=== PATIENT | female | born 1935 | race Caucasian/White ===

== ENCOUNTER 2016-11-15 13:00 | Inpatient (IN) | payer OTHER ==
[~2016-11-15 13:00] MED LIST: CHLORHEXIDINE GLUC HIBICLENS 118 ML BTL TP ONE
[2016-11-22] MEDS ORDERED: CHLORHEXIDINE GLUC HIBICLENS 118 ML BTL TP ONE (06:00)
[2016-11-22] MEDS ORDERED: LIDOCAINE 1% 5 ML SDV ONE (13:01)
[2016-11-22] MEDS ORDERED: INSULIN REGULAR HUMAN 100 UNIT/ML ONE (13:37)
[2016-11-22] MEDS ORDERED: BUPIVACAINE 0.5% 30 ML SDV ONE (13:40)
[2016-11-22] MEDS ORDERED: BUPIVACAINE/EPI 0.25% 30 ML SDV ONE (13:40)
[2016-11-22] MEDS ORDERED: SKIN ADHESIVE (DERMABOND) 1 EACH TP ONE (13:41)
[2016-11-22] MEDS ORDERED: BACITRACIN 50,000 UNITS/10 ML SYR IRR ONE (13:42)
[2016-11-22] MEDS ORDERED: fentaNYL 100 MCG/2 ML INJ ONE (13:57)
[2016-11-22] MEDS ORDERED: PROPOFOL 200 MG/20 ML VIAL ONE ×2 (13:57)
[2016-11-22] MEDS ORDERED: LIDOCAINE 2% 100 MG/5 ML SYR IVP ONE (13:59)
[2016-11-22] MEDS ORDERED: ROCURONIUM 50 MG/5 ML VIAL ONE (14:00)
[2016-11-22] MEDS ORDERED: ceFAZolin 2 GM/DEXTROSE 100 ML IV ONE (14:30)
[2016-11-22] MEDS ORDERED: PHENYLEPHRINE 10 MG/ML SDV ONE (14:39)
[2016-11-22] MEDS ORDERED: ONDANSETRON 4 MG/2 ML VIAL ONE (15:10)
[2016-11-22] MEDS ORDERED: DEXAMETHASONE 4 MG/ML VIAL ONE (15:10)
[2016-11-22] MEDS ORDERED: LR 1,000 ML IV ONE (15:16)
[2016-11-22] MEDS ORDERED: LIDOCAINE 1% 5 ML SDV ID PRN (15:16)
[2016-11-22] MEDS ORDERED: HYDROmorphONE/DILAUDID 2 MG/ML SYR ONE (17:06)
--- NOTE | 2016-11-22 17:17 | POSTOPPROG ---
Post Op Note Date of Operation: 11/22/16 Surgeon: Daniel Vizcaino Anesthesiologist: Sherry Anesthesia: GET(General Endotracheal) Pre-op Diagnosis: Infected R humeral IMN, rotator cuff deficiency Post-op Diagnosis: Infected R humeral IMN, rotator cuff deficiency Indication: Infection Procedure: R humeral IMN, blade and interlock screw removal with I&D Findings: No gross purulence, however extensive biofilm present. Inf/Abcess present in the surg proc area at time of surgery?: Yes Depth: Organ Space (Bone) EBL: 100-500 (200cc) Complications: None Drains: Other (None) Specimen(s): Multiple cultures sent including tissue, swab and fluid.
[2016-11-22] MEDS ORDERED: SIMETHICONE 80 MG TAB CHEW PO PRN (17:20)
[2016-11-22] MEDS ORDERED: DIAZEPAM 5 MG TAB PO PRN (17:20)
[2016-11-22] MEDS ORDERED: TEMAZEPAM 15 MG CAP PO PRN (17:20)
[2016-11-22] MEDS ORDERED: OXYCODONE/APAP 5/325 TAB PO PRN (17:20)
[2016-11-22] MEDS ORDERED: diphenhydrAMINE 25 MG CAP PO PRN (17:20)
[2016-11-22] MEDS ORDERED: ACETAMINOPHEN 325 MG TAB PO PRN (17:20)
[2016-11-22] MEDS ORDERED: HYDROmorphONE/DILAUDID 1 MG/ML SYR IVP PRN (17:20)
[2016-11-22] MEDS ORDERED: ONDANSETRON 4 MG/2 ML VIAL IVP PRN (17:20)
[2016-11-22] MEDS ORDERED: FAMOTIDINE 20 MG TAB PO PRN (17:20)
[2016-11-22] MEDS ORDERED: PROMETHAZINE HCL 25 MG TAB PO PRN (17:20)
[2016-11-22] MEDS ORDERED: ONDANSETRON DISINTEGRATING 4 MG TAB PO PRN (17:20)
[2016-11-22] MEDS ORDERED: D5W 1/2 NS W/ 20 KCl/L 1,000 ML IV SCH (17:30)
[2016-11-22] MEDS ORDERED: INSULIN LISPRO 100 UNIT/ML SC SCH (18:00)
--- NOTE | 2016-11-22 18:38 | DX ---
Left Humerus, Two Views Clinical Indications: Postoperative follow up removal of orthopedic hardware; no previous studies ar e available for comparison. Findings: There is a healed humeral fracture. Previously positioned intramedullary carlo has been rem prashanth. There are two screw holes seen in the distal humeral diaphysis. No acute fracture is seen. S tigmata of previous proximal humeral screw is noted. Hypertrophic bony changes are noted. Impression: Negative for complication following removal of intramedullary carlo for treatment of left humeral fracture.
[2016-11-22] MEDS ORDERED: D50W 25 GM/50 ML SYR IVP PRN ×2 (18:47→22:51)
[2016-11-22] MEDS ORDERED: PARAMETERS MISC PRN (18:47)
--- NOTE | 2016-11-22 18:57 | GOP ---
[f rep st] OPERATIVE REPORT DATE OF OPERATION: 11/22/2016 SURGEON: Daniel Vizcaino MD CELLOPHANE BAG MACHINE OPERATOR: Tran Bishop PA-C ANESTHESIA: General. ANESTHESIOLOGIST: Lauro Powell MD PREOPERATIVE DIAGNOSIS: Infected right humeral intramedullary nail fracture prosthesis; possible chronic osteomyelitis; right shoulder rotator cuff deficiency. POSTOPERATIVE DIAGNOSIS: Infected right humeral intramedullary nail fracture prosthesis; possible chronic osteomyelitis; right shoulder rotator cuff deficiency. PROCEDURE PERFORMED: 1. Right shoulder incision, irrigation, drainage, and debridement. 2. Right elbow incision, irrigation, drainage, and debridement. 3. Removal of right humeral IM nail fracture prosthesis requiring shoulder and elbow incisions. FINDINGS: Humeral hardware was intact throughout. There was no gross purulence at any of the surgical sites. There was extensive biofilm within the intramedullary canal, surrounding the nail, and within the central cannulated portion of the humeral nail. There was a very large superior humeral bony defect after HWR, measuring 1.5-2cm A-P and 4cm S-I, i.e., in the area of the proximal screw and washers and spiral blade. In addition, the nail was initially found with 7-8mm of prominence superiorly, impinging on the undersurface of the acromion and area of normal rotator cuff tendon. There was a very large rotator cuff tear and severe rotator cuff deficiency throughout all of the SSp and majority of IS insertions. Otherwise, the fracture appeared to be healed throughout. SPECIMENS: Multiple soft tissue, swab and fluid samples were sent for culture and sensitivity prior to prophylactic antibiotics. Again, prophylactic antibiotics were provided after cultures were sent. ESTIMATED BLOOD LOSS: 200 cc. INDICATIONS: This is an 81-year-old female, who presented to me many months back with complaints of right shoulder pain, weakness and disability, and notable history of R humerus fx and IMN in October 2011. On initial presentation, her exam was consistent with significant cuff tear arthropathy but no sign of infection. She was managed nonoperatively with modalities and PT. Over the next 6 months or so, she began developing areas of redness, swelling, and pain, particularly around the lateral distal humerus concerning for possible infectious etiology, given exam, lab and imaging findings. I referred her for ID consultation with Dr. Gerard Barnett, who agreed with the overall workup, including imaging studies and lab markers, that there was a considerable concern for infected right humeral IM fracture prosthesis. As a result, the patient eventually elected to proceed with right shoulder and elbow surgery as listed above. The risks, benefits, and alternatives were described to the patient. All of her questions were answered prior to surgery. Please see history and physical for additional information. DESCRIPTION OF PROCEDURE: The patient was identified in the preoperative holding area and her right shoulder and elbow were signed as the operative site. The patient was confirmed in bilateral lower extremity NICOL hose and SCDs , and 2 g of IV prophylactic cefazolin were held and ready for provision in the operating room after cultures were obtained. The patient was taken back to the operating room, placed on the OR table, and general anesthesia was obtained. Once the area was stabilized, she was placed into the beach chair position. Great care was taken to pad behind both knees and around both proximal fibulas as well as foam egg-crate padding around both heels and ankles. Head and neck were carefully positioned with the standard well-padded head and neck positioning device in neutral position. Goggles were placed. The left upper extremity was placed across the lap with abundant padding around the elbow and ulnar nerve as well as around the hand and wrist. The right upper extremity was then prepped and draped in the usual sterile manner. Incision lines from prior surgery were utilized for this surgery. Each of these incisions was infiltrated with 10 cc of 0.25% Marcaine with epinephrine. A #10 blade was used to make an incision over the deltoid measuring approximately 8 cm and an additional incision distally over the anteromedial distal biceps region over a length of approximately 4 cm. Again, these were both the scars from her prior surgery. Once these incisions were made through the level of the skin, careful dissection was taken down through the subcutaneous fat. Proximally, the deltoid was split at the level of the scar plane and with 2 different windows utilized through the deltoid, both more laterally and more anteriorly, the hardware was accessed. With debridement of the significant subdeltoid bursa, the lateral humerus and greater tuberosity were identified. The nail was relatively proud superiorly and, therefore, it was easily identifiable on the anterosuperior humerus. Once all debridement was completed and tissues were removed, multiple samples were sent for culture. The end cap was removed using a standard StarDrive from the [employer] set. Next , the blade portion of the nail was identified and debrided of soft tissues as well as all sutures were removed. Again, soft tissues and some suture were sent for culture. The standard T-handle for the blade was then assembled onto the blade and the blade was removed from the proximal humerus. Next, more inferiorly and anteriorly, an additional screw was found with 2 washers. This was apparently through the nail from preop x-rays as well as direct visualization. The axillary nerve was directly over this screw and, therefore, very carefully dissection and retraction were utilized in order to protect the axillary nerve. This screw was then removed with its 2 washers in its entirety. Once the proximal hardware was removed, the distal hardware was addressed. Right anterior dermal incision was made thru prior scar, and with careful dissection down through the abundant subcutaneous fat, retractors were placed. With blunt dissection using the surgeon's finger as well as Metzenbaum scissors , spreading was utilized in order to access the anterior humerus through scarred muscle tissues. A baby Huff was placed directly on bone just medial to both the proximal and distal interlock screws and [facility] lateral. In each case, the humerus was rotated in order to deliver the screw into the field and then the screw was removed with the standard StarDrive screwdriver. In both cases, the entire screw was removed without any damage. Finally, using the standard threaded extraction device, the nail was malleted in a retrograde manner up out through the superior and anterior portal. Please note that the blade was removed through the more posterolateral window at the deltoid and the anterolateral window as utilized for the screw-in nail. Biofilm tissue from the nail was carefully removed from the internal portion of the nail and sent for C&S. Once all hardware was removed from the humerus both proximally and distally, both wounds were copiously irrigated with sterile saline using standard bulb syringe lavage as well as pulsatile lavage. The intramedullary canal of the humerus was then debrided with a long curved curette as well as a small backhoe device. Membrane from within the humeral canal was sent for additional cultures. Swabs were utilized in order to swab the intramedullary canal and the distal interlock screw holes and these were sent for culture. The distal humerus was accessed via the anterior incision, and irrigated and debrided of any membranous or necrotic tissues concerning for possible infection. There was no obvious gross cortical osteomyelitis or pus. Both distal humeral screw holes were treated with curettage and cultures were sent. Once all cultures were sent, the 2 g of IV cefazolin was provided by the anesthesia service. Once this work was completed, the intramedullary canal was further pulsatile lavaged with an intramedullary lavage tip. All irrigation was then removed with the standard ortho suction tip. The shoulder was inspected throughout and found to be of appropriate hemostasis. Given that the rotator cuff was significantly deficient and there was a very large bone void proximally, no rotator cuff repair was performed or possible. The wounds were then closed in layers. Proximally, the deltoid splits, i.e., the anterior and posterior windows, were closed with multiple interrupted 0 Vicryl sutures. The deep fat and dermal space was closed with 2-0 Vicryl sutures. The deep dermal layer was closed with 3-0 Monocryl sutures. The skin was closed with monica. Distally at the humerus, the fat layer was closed with multiple interrupted 2-0 Vicryl sutures. The deep dermal layer was closed with 3-0 Monocryl sutures and then the skin was closed with monica. Sterile postoperative cervical dressings were applied. The right upper extremity was placed in a sling immobilizer. The patient was then returned to the supine position and the anesthesia service took over to wake the patient up. TOURNIQUET TIME: None. DRAINS: None. IMPLANTS: None. COMPLICATIONS: None. DISPOSITION: The patient was extubated and transferred to the PACU in stable condition. She will be admitted for medical management due to brittle diabetes and pain control. She will be seen by ID consult and medical comanagement. /[id number]/MODL MTDD
--- NOTE | 2016-11-22 19:19 | DX ---
Fluoroscopy Provided for Intraoperative Localization Indication: Removal of right humeral hardware. Technique: 5 seconds of fluoroscopy time. Cumulative dose: 0.24 mGy. Findings: Three intraoperative spot films reveal localization of the the upper and lower interlockin g screws. Impression: Fluoroscopy provided for intraoperative localization.
[2016-11-22 19:34] VITALS: RESP 16
[2016-11-22] MEDS: OXYBUTYNIN CHLORIDE 5 MG TAB PO SCH (19:47)
[2016-11-22] MEDS: CYANO/VITAMIN B12 1000 MCG TAB PO SCH (19:48)
[2016-11-22] MEDS: ASPIRIN EC 325 MG TAB PO SCH (19:48)
[2016-11-22] MEDS: GABAPENTIN 300 MG CAP PO SCH (19:48)
[2016-11-22] MEDS: HYDROCODONE/APAP 5/325 TAB PO PRN (19:54)
[2016-11-22] MEDS ORDERED: INSULIN GLARGINE 100 UNITS/ML SYRINGE SC SCH (21:00)
[2016-11-22 22:26] LABS: GLUCOSE 392 mg/dL (70-100)
[2016-11-22] MEDS ORDERED: 1/2 NS 1,000 ML IV SCH (23:00)
[2016-11-22] MEDS: ceFAZolin 2 GM/DEXTROSE 100 ML IV SCH (23:15)
--- NOTE | 2016-11-23 01:17 | GCON ---
[f rep st] CONSULTATION INTERNAL MEDICINE CONSULTATION DATE OF CONSULTATION: 11/22/2016 REFERRING PHYSICIAN: Daniel Vizcaino MD REASON FOR CONSULTATION: Medical opinion regarding hyperglycemia in a known diabetic. HISTORY: This patient is an 81-year-old female who has been having right shoulder pain for months. Initially she was diagnosed with a rotator cuff tear. Eventually she had increasing infectious sympt oms and saw Dr. Gerard Barnett as an outpatient and was thought to have an infected right humeral prosthes is. She had previously had an IM nail into that shoulder. She had increased redness, swelling, and pain. She now presents to the hospital for elective surgery with Dr. Vizcaino on the right shoulder. Earlier today, she underwent incision and drainage and debridement. No purulence was found, but th ere was extensive biofilm present and bone breakdown. This is suspicious for possible osteomyelitis. The nail was removed. The patient is seen postoperatively in her room when she is having very high glucose, with her last r eading being 392. Her only complaint at this time is feeling a little dizzy. She otherwise feels we ll. PAST MEDICAL HISTORY: 1. Diabetes type 2. 2. Hypothyroidism. 3. E coli sepsis requiring ICU stay at [facility] last July. She had a [facility]TI [facility], although she is not clear whether or not that was her source of infection. PAST SURGICAL HISTORY: Bilateral total knee arthroplasties, appendectomy, cholecystectomy, tonsillec jovany. MEDICATIONS: Please see computer record for full detailed list. ALLERGIES: Penicillin, and sulfa. SOCIAL HISTORY: Quit smoking in 1985. No alcohol. She lives alone in [facility]. PRIMARY CARE PHYSICIAN: Dr. Palmira Matthew. REVIEW OF SYSTEMS: Complete Review of Systems is obtained. Review of Systems is negative on constit utional, HEENT, GI, pulmonary, cardiovascular, , hematology, skin, musculoskeletal, endocrine, psyc h, except for positives and negatives as are in HPI. FAMILY HISTORY: Reviewed, noncontributory to presenting complaint. PHYSICAL EXAMINATION: GENERAL: Well-developed, well-nourished female, in no acute distress. VITAL SIGNS: Temperature is 37.0, pulse of 70, blood pressure 121/76, satting 94% on 3 L. EYES: Normal c onjunctivae, pupils equal and react to light. ENT: Normal ears and nose. Hearing intact. Normal t eeth. Oropharynx moist. NECK: Trachea midline. No thyromegaly. CHEST: Normal effort. LUNGS: C lear to auscultation bilaterally. CARDIOVASCULAR: Regular rate and rhythm. No murmur. No lower ex tremity edema. ABDOMEN: Soft, nontender. No hepatosplenomegaly. SKIN: Warm, dry, intact. No jose h. MUSCULOSKELETAL: No cyanosis or clubbing. Strength 5/5 upper and lower extremities. NEUROLOGIC : Cranial nerves intact. Normal sensation to light touch. PSYCHIATRIC: Alert and oriented x3. No rmal mood and affect. Normal judgment. Normal memory. LABORATORY VALUES: Only lab at this time is a glucose of 392. ASSESSMENT/PLAN: 1. Diabetes type 2, uncontrolled. Will remove the D5 from her IV fluid and instead place her on neha f-normal saline without dextrose. Will start insulin sliding scale with regular insulin and give her evening Lantus dose at 30 mg at her home dose. Blood glucose will continue to be monitored closely. Will check a hemoglobin A1c to assess baseline control. 2. Infected shoulder prosthesis, possible osteomyelitis, status post incision and drainage and debri natalio, and IM nail removal. Cultures have been sent and are pending. She is currently on IV Ancef. Infectious Disease will consult in the morning. 3. Obesity. BMI of 33. 4. Will watch respiratory status closely in the postoperative period, especially as she is requiring narcotics. 5. Deep venous thrombosis prophylaxis. She is high risk. Will prescribe subcu Lovenox to start in the morning. CORE STATUS: She does request DNR now that she is through the operative period. Internal Medicine will continue to follow along as this patient remains hospitalized. Thank you very much for this consultation. /[id number]/MODL
[2016-11-23] MEDS: LEVOTHYROXINE 112 MCG TAB PO SCH (05:06)
[2016-11-23 06:36] LABS: % IMMATURE GRANULYOCYTES 0.4 % (0.0-1.1); ABSOLUTE IMMATURE GRANULOCYTES 0.04 10^3/uL (0.00-0.10); ADD DIFF? NO; ADD MORPH? NO; ADD SCAN? NO; ATYPICAL LYMPHOCYTE FLAG 0 (0-99); FRAGMENT RBC FLAG 0 (0-99); HEMATOCRIT 38.8 % (38.0-47.0); HEMOGLOBIN 12.5 g/dL (12.6-16.3); LEFT SHIFT FLG 0 (0-99); LIPEMIA HEMOLYSIS FLAG 80 (0-99); MEAN CELL HEMOGLOBIN 28.5 pg (27.9-34.1); MEAN CELL HEMOGLOBIN CONCENTR. 32.2 g/dL (32.4-36.7); MEAN CELL VOLUME 88.4 fL (81.5-99.8); MEAN PLATELET VOLUME 9.7 fL (8.7-11.7); PLATELET CLUMPS FLAG 0 (0-99); PLATELET COUNT 244 10^3/uL (150-400); RED BLOOD CELL COUNT 4.39 10^6/uL (4.18-5.33); RED CELL DISTRIBUTION WIDTH 14.6 % (11.5-15.2)
[2016-11-23 06:43] LABS: ANION GAP 12 mEq/L (8-16); CALCIUM 8.4 mg/dL (8.5-10.4); CARBON DIOXIDE 26 mEq/l (22-31); CHLORIDE 99 mEq/L (97-110); CREATININE 1.4 mg/dL (0.6-1.0); GLOMERULAR FILTRATION RATE 36; GLUCOSE 470 mg/dL (70-100); POTASSIUM 5.2 mEq/L (3.5-5.2); SODIUM 137 mEq/L (134-144)
[2016-11-23] MEDS: ceFAZolin 2 GM/DEXTROSE 100 ML IV SCH (07:14)
[2016-11-23] MEDS ORDERED: INSULIN REGULAR HUMAN 100 UNIT/ML SC SCH (07:30)
[2016-11-23] MEDS ORDERED: ENOXAPARIN 40 MG/0.4 ML SYR SC SCH (09:00)
--- NOTE | 2016-11-23 09:08 | SOAPPROG ---
SOAP Progress Note Assessment/Plan: Assessment/Plan: 81y/o F s/p irrigation, debridement and drainage of the right shoulder and elbow; removal of R humeral nail for an infected R humeral IM nail and possible osteomyelitis POD#1 - Continue pain management - Continue PT/OT - Continue SCDs/TEDs - Continue Lovenox for VTE prophylaxis - Patient is okay for discharge from an orthopedic standpoint, but will wait for hospitalist clearance - Patient will need close follow-up with PCP after discharge 11/23/16 09:11 Subjective: 81y/o F s/p irrigation, debridement and drainage of the right shoulder and elbow ; removal of R humeral nail for an infected R humeral IM nail and possible osteomyelitis. Pt states she is feeling well this morning, and pain is well- controlled on [place]. Current pain 02/18. Pt has been up and out of bed without difficulty. Pt denies fever, chills, chest pain, SOB, nausea, vomiting, calf pain, numbness and tingling. Objective: VSS, afebrile, glucose 470 Vital Signs Temp Pulse Resp BP Pulse Ox 36.9 C 62 16 114/80 95 11/23/16 07:50 11/23/16 07:50 11/23/16 07:50 11/23/16 07:50 11/23/16 07:50 Microbiology 11/22/16 16:00 Gram Stain - Final Arm - Tissue 11/22/16 16:00 Gram Stain - Final Arm - Tissue 11/22/16 16:00 Gram Stain - Final Arm - Tissue 11/22/16 16:00 Gram Stain - Final Arm - Eswab 11/22/16 16:00 Gram Stain - Final Arm - Eswab 11/22/16 16:00 Gram Stain - Final Arm - Tissue Laboratory Results 11/23/16 04:28 11/23/16 04:28 11/22/16 11/23/16 11/24/16 05:59 05:59 05:59 Intake Total 1600 600 Output Total 250 550 Balance 1350 50 Physical Exam - Physical Exam General Appearance: alert, no apparent distress Skin: normal color, warm/dry, other (Dressing and sling in place RUE) Extremities: normal capillary refill, No pedal edema, No calf tenderness, No swelling, No Ronaldo's sign Neuro/Psych: no motor/sensory deficits, alert, normal mood/affect ICD10 Worksheet Patient Problems: Problems Problem Status Diagnosed infected hardware right upper extremity Acute
[2016-11-23] MEDS: HYDROCODONE/APAP 5/325 TAB PO PRN ×2 (09:10→17:23)
[2016-11-23] MEDS: OXYBUTYNIN CHLORIDE 5 MG TAB PO SCH ×2 (09:10→20:46)
[2016-11-23] MEDS: ASPIRIN EC 325 MG TAB PO SCH ×2 (09:10→20:46)
[2016-11-23] MEDS ORDERED: ALTEPLASE 2 MG VIAL IVP PRN (09:44)
[2016-11-23] MEDS ORDERED: VANCOMYCIN 750 MG in D5W 150 ML IV SCH (10:00)
[2016-11-23] MEDS ORDERED: INSULIN GLARGINE 100 UNITS/ML SYRINGE SC SCH (10:13)
--- NOTE | 2016-11-23 10:15 | PDIAF ---
- Diagnosis Diagnosis: R Shoulder Infection, possible OM Code Status: Do Not Resuscitate - Medication Management Discharge Medications: Medications to Continue on Transfer Cyanocobalamin [Vitamin B12 (*)] 1,000 mcg PO HS 11/08/16 [Last Taken 11/21/16 23:00] Gabapentin [Neurontin 300 MG (*)] 600 mg PO HS 11/08/16 [Last Taken 11/21/16 23: 00] Insulin Glargine [Lantus 100 UNITS/ML (*)] 30 units SC HS 11/08/16 [Last Taken 11/21/16 23:00] Insulin Lispro [humALOG LISPRO 100 units/ml (*)] 10 - 12 unit SC TIDMEAL [Last Taken 11/21/16 23:00] Levothyroxine [Synthroid 112 mcg (*)] 112 mcg PO DAILY06 11/08/16 [Last Taken 08:15] Oxybutynin Chloride 5 mg PO BID 11/08/16 [Last Taken 11/22/16 08:15] Hydrocodone/APAP 5/325 [[place] 5/325 (*)] 1 - 2 tab PO Q4HRS PRN #30 tab [Last Taken Unknown] Retirement Antibiotics: vancomycin 750mg IV daily Rooming House Keeper Antibiotic Stop Date: 01/04/17 Discharge Medications: Refer to the Discharge Home Medication list for PRN reason. PICC Care - Routine: Yes - Orders Services needed: Home Care, Registered Nurse Home Care Face to Face: I certify that this patient was under my care and that I had the required [id number] encounter meeting the encounter requirements on the discharge day. My findings support the fact that the patient is homebound as defined in CMS Chapter 7 Medicare Benefits Manual 30.1.1, The condition of the patient is such that there exists a normal inability to leave home and consequently, leaving home would require a considerable and taxing effort. [place]: No - Labs/Radiology BMP Date: 11/29/16 (weekly ) CBC Date: 11/26/16 (Weekly Saturday) CMP Date: 11/26/16 (Weekly Saturday) CRP Date: 11/26/16 (Weekly Saturday) [place] Date and Time: 11/26 and 11/29 and every following Saturday and Call or Fax Lab and Imaging Results to: [id number] - Follow Up Care Current Providers and Referrals: Daniel Vizcaino MD [Medical Doctor] - (Pt will follow up 10-14 days postoperatively, or sooner with any additional concerns or complaints. This appointment has been previously scheduled.) Palmira Frost MD [Primary Care Provider] - Gerard Barnett MD [Medical Doctor] - 12/03/16
[2016-11-23 10:32] LABS: GLUCOSE 504 mg/dL (70-100)
[2016-11-23 11:02] LABS: HEMOGLOBIN A1C 8.4 % (4.0-6.0)
--- NOTE | 2016-11-23 11:15 | HOSPPROG ---
Hospitalist Progress Note Assessment/Plan: Patient is an 81-year-old female who is been having right shoulder pain for months. She was initially diagnosed with a rotator cuff tear. She had increasing infectious symptoms and saw Dr. Barnett in the outpatient setting. She had elective surgery Dr. Vizcaino on the right shoulder. She is status post I and D and debridement. Today is my 1st encounter with the patient. Chart reviewed. Discussed her care with both ID and orthopedics physicians. #. Diabetes type 2/uncontrolled * spoke with nursing staff and and glucoses remain uncontrolled today * will place on ADA diet * suspect that her infection is affecting her elevated glucoses * changed sliding scale to high/ and increased lantus dosing * hgb A1c was elevated @ 8.4 #. infected shoulder prosthesis * status post I and D * Infectious Disease team involved with her care #, obesity with a BMI of 33 #. renal insufficiency with a creatinine of 1.4 #. DVT prophylaxis: will change to heparin with elevated creat Subjective: Ellie says her shoulder pain is well managed/ asymptomtic of high sugars. Objective: Vital Signs Temp Pulse Resp BP Pulse Ox 36.9 C 62 16 114/80 95 11/23/16 07:50 11/23/16 07:50 11/23/16 07:50 11/23/16 07:50 11/23/16 07:50 Microbiology 11/22/16 16:00 Gram Stain - Final Arm - Tissue 11/22/16 16:00 Gram Stain - Final Arm - Tissue 11/22/16 16:00 Gram Stain - Final Arm - Tissue 11/22/16 16:00 Gram Stain - Final Arm - Eswab 11/22/16 16:00 Gram Stain - Final Arm - Eswab 11/22/16 16:00 Gram Stain - Final Arm - Tissue Laboratory Results 11/23/16 04:28 11/23/16 09:35 11/22/16 11/23/16 11/24/16 05:59 05:59 05:59 Intake Total 1600 600 Output Total 250 550 Balance 1350 50 - Physical Exam Constitutional: not in pain, chronically ill appearing Eyes: PERRL Ears, Nose, Mouth, Throat: hearing normal Cardiovascular: regular rate and rhythym Respiratory: no respiratory distress Gastrointestinal: normoactive bowel sounds Skin: warm Neurologic: AAOx3 Psychiatric: interacting appropriately, not anxious, not encephalopathic ICD10 Worksheet Patient Problems: Problems Problem Status Diagnosed infected hardware right upper extremity Acute
[2016-11-23] MEDS ORDERED: INSULIN REGULAR HUMAN 100 UNIT/ML SC ONE (11:30)
--- NOTE | 2016-11-23 11:38 | GCON ---
[f rep st] CONSULTATION INFECTIOUS DISEASE CONSULTATION DATE OF CONSULTATION: 11/23/2016 REFERRING PHYSICIAN: Daniel Vizcaino MD REASON FOR CONSULTATION: Right shoulder infection. HISTORY OF PRESENT ILLNESS: An 81-year-old woman with type 2 diabetes whose problems related to her right shoulder date back to 2010 when she sustained a right humerus fracture requiring ORIF on 11/08/2011. Patient subsequently developed recurrent bouts of right upper extremity cellulitis starting approximately in March of 2016 and was subsequently evaluated by my partner, Dr. Barnett, on September 13, 2016 for potential underlying involvement of the hardware and indolent infection. Patient underwent imaging at outside facilities, including a bone scan and tagged WBC, which had increased activity at the right proximal and distal humerus, and patient had labs that suggested of chronic mild inflammation. Further, patient underwent a joint aspiration in June of 2016 that was reportedly negative. The patient was placed on suppressive doxycycline and was relatively stable, but it was decided to undergo definitive therapy with hardware removal to cure the infection. The patient had this procedure done on November 22, 2016. She stopped doxycycline 2 weeks prior. Postoperatively, she is feeling well without specific complaints and desires to go home as soon as possible. Intraoperatively, it was noted no purulence, but significant biofilm. All Gram stains were negative for organisms. Multiple cultures are currently pending today. PAST MEDICAL HISTORY: Type 2 diabetes, hypothyroidism, and recent urosepsis last summer. PAST SURGICAL HISTORY: Appendectomy, cholecystectomy, fractured humerus with repair 11/08/2011, and bilateral knee replacement. FAMILY HISTORY: Positive for coronary artery disease and type 2 diabetes. SOCIAL HISTORY: The patient is a former tobacco user. No alcohol. She lives in [place] and her granddaughter provides her some help. ALLERGIES: The patient has an allergy to penicillin which causes hives and diffuse erythema, and sulfa which causes nausea. She also has codeine and morphine listed as allergies. MEDICATIONS: The patient is chronically on Humalog, Lantus, and levothyroxine, is on pain, nausea and laxatives while hospitalized. REVIEW OF SYSTEMS: A complete 10-point review of systems was performed and is negative, except as mentioned in the HPI. PHYSICAL EXAM: VITAL SIGNS: Blood pressure 114/80, heart rate 62, respiratory rate 16, saturation 95% on 2 L, temperature 36.9. She has been afebrile throughout the hospital course. GENERAL: This is a pleasant, well-appearing woman who appears younger than her stated age. In no acute distress. HEENT: Moist mucous membranes. No oral lesions. NECK: Supple. No lymphadenopathy. CARDIOVASCULAR: Regular rate and rhythm. No murmurs. CHEST: Clear to auscultation bilaterally. ABDOMEN: Obese, soft, nontender. Bowel sounds are present. EXTREMITIES: No lower extremities edema. No joint swelling. Right shoulder surgical dressings were still in place. The patient's arm was in a sling. NEUROLOGICAL: She was alert and oriented x4, moving all 4 extremities. LABORATORY: White count 10.6, hematocrit 38, platelets of 244. Creatinine was 1.4, glucoses were over 350 since hospitalization. Microbiology: Six separate cultures are in the Microbiology Lab and pending. Gram stains were negative, as above. ASSESSMENT AND PLAN: This is an 81-year-old woman with recurrent skin infection of her right shoulder that reflected underlying infection of her shoulder with hardware in place, some underlying concern for osteomyelitis. Patient is now status post hardware removal and debridement and we will plan oral doxycycline and follow cultures. Most likely etiologic agents include: Propionibacterium acnes, Staphylococcus and Streptococcus. Noted patient's significant allergy to penicillin. Of note, patient did have bacteremia with Escherichia coli last year and this is a possible pathogen, but is so low on the list will not cover empirically, and we will continue to follow cultures. The patient is instructed to follow up with Dr. Barnett in our office and we will try to plan for simultaneous followup on December 04 when she returns to see Dr. Vizcaino. /[id number]/MODL MTDD
[2016-11-23] MEDS: INSULIN REGULAR, HUMAN 100 UNIT/1 ML VIAL HIGH SC SCH ×3 (12:33→21:19)
--- NOTE | 2016-11-23 12:58 | SOAPPROG ---
SOAP Progress Note Assessment/Plan: Assessment: POD 1 s/p R shoulder/elbow extensive I&D, humeral IMN/fx prosthesis removal with complete HWR. Doing well from ortho standpoint, no sign of active/aggressive infection, primary concern at this point is uncontrolled DMII and BG's. Plan: NWB RUE in immobilizer; OK for RUE hand/wrist/elbow A/AA/PROM, shoulder pendulums only. OOB ad john, activity as tolerated. Complete proph IV cefazolin. Per my discussion with Dr Barnett pre-op and today, ID will re-Rx doxy PO and tailor abx pending micro results. Therefore, PICC and IV abx cancelled. Will follow micro and have requested cx continued for 14 days to allow for possible p. acnes growth. D/c home once medicine has been able to regain control of her elevated BG's and she is medically fit. F/u with both Dr Barnett and me 10-14 days post-op. Initial plan was TEDs/SCDs + PO ECASA for VTE prophylaxis, however, Dr Chua from medicine preferred/Rx'd Enox o/n, therefore will continue for 14 days post-op and prophylactically. I appreciate Hosp and ID svce assistance on her care. Please call with any questions. 11/23/16 12:51 Subjective: Denies any pain, numbness, tingling. No fevers/chills, overall feels well. Objective: Vital Signs Temp Pulse Resp BP Pulse Ox 37.0 C 63 16 130/56 H 95 11/23/16 11:42 11/23/16 11:42 11/23/16 11:42 11/23/16 11:42 11/23/16 11:42 Microbiology 11/22/16 16:00 Gram Stain - Final Arm - Tissue 11/22/16 16:00 Gram Stain - Final Arm - Tissue 11/22/16 16:00 Gram Stain - Final Arm - Tissue 11/22/16 16:00 Gram Stain - Final Arm - Eswab 11/22/16 16:00 Gram Stain - Final Arm - Eswab 11/22/16 16:00 Gram Stain - Final Arm - Tissue Laboratory Results 11/23/16 04:28 11/23/16 09:35 11/22/16 11/23/16 11/24/16 05:59 05:59 05:59 Intake Total 1600 600 Output Total 250 550 Balance 1350 50 AFeb, VSS. RUE in immob, dsgs c/d/i. Delt motor function intact and LT sens grossly intact. DNVI BUE's. MICRO: NGTD, +PMNs/+WBCs, no org's. Repeat BG's >350 after 504 this AM. ICD10 Worksheet Patient Problems: Problems Problem Status Diagnosed infected hardware right upper extremity Acute
[2016-11-23 13:52] LABS: ALBUMIN 3.1 g/dL (3.5-5.0); BILIRUBIN,TOTAL 0.4 mg/dL (0.1-1.4); BILIRUBIN-CONJUGATED 0.4 mg/dL (0.0-0.5); C-REACTIVE PROTEIN 68.1 mg/L (<10.0); TOTAL PROTEIN 5.8 g/dL (6.3-8.2)
[2016-11-23] MEDS ORDERED: ceFAZolin 2 GM/DEXTROSE 100 ML IV SCH (16:00)
[2016-11-23] MEDS: HEPARIN 5,000 UNIT/0.5 ML SYR SC SCH (20:44)
[2016-11-23] MEDS: CYANO/VITAMIN B12 1000 MCG TAB PO SCH (20:46)
[2016-11-23] MEDS: GABAPENTIN 300 MG CAP PO SCH (20:46)
[2016-11-24 05:26] LABS: HEMATOCRIT 36.5 % (38.0-47.0); HEMOGLOBIN 11.9 g/dL (12.6-16.3)
[2016-11-24 05:33] LABS: ANION GAP 9 mEq/L (8-16); CARBON DIOXIDE 28 mEq/l (22-31); CHLORIDE 105 mEq/L (97-110); CREATININE 1.3 mg/dL (0.6-1.0); GLOMERULAR FILTRATION RATE 39; GLUCOSE 119 mg/dL (70-100); POTASSIUM 4.3 mEq/L (3.5-5.2); SODIUM 142 mEq/L (134-144)
[2016-11-24] MEDS: LEVOTHYROXINE 112 MCG TAB PO SCH (06:07)
[2016-11-24] MEDS: HEPARIN 5,000 UNIT/0.5 ML SYR SC SCH (06:08)
[2016-11-24] MEDS: HYDROCODONE/APAP 5/325 TAB PO PRN ×2 (06:19→13:53)
[2016-11-24 07:19] VITALS: O2SAT 96
[2016-11-24] MEDS ORDERED: INSULIN GLARGINE 100 UNITS/ML SYRINGE SC SCH (08:39)
--- NOTE | 2016-11-24 08:39 | HOSPPROG ---
Hospitalist Progress Note Assessment/Plan: Patient is an 81-year-old female who is been having right shoulder pain for months. She was initially diagnosed with a rotator cuff tear. She had increasing infectious symptoms and saw Dr. Barnett in the outpatient setting. She had elective surgery Dr. Vizcaino on the right shoulder. She is status post I and D and debridement. #. Diabetes type 2/uncontrolled * much improved today * had been on high dose sliding scale will change her to the middle * I increased her Lantus dose/ will resume her baseline dose * placed on ADA diet * hgb A1c was elevated @ 8.4 #. infected shoulder prosthesis * status post I and D * Infectious Disease team involved with her care #, obesity with a BMI of 33 #. renal insufficiency with a creatinine of 1.3 #. DVT prophylaxis: placed on lower dose of Lovenox 30 daily sq okay to DC home today per Orthopedics Subjective: Ellie has no complaints. Objective: Vital Signs Temp Pulse Resp BP Pulse Ox 36.7 C 53 L 16 133/85 H 96 11/24/16 07:17 11/24/16 07:17 11/24/16 07:17 11/24/16 07:17 11/24/16 07:17 Microbiology 11/22/16 16:00 Gram Stain - Final Arm - Tissue 11/22/16 16:00 Gram Stain - Final Arm - Tissue 11/22/16 16:00 Gram Stain - Final Arm - Eswab 11/22/16 16:00 Gram Stain - Final Arm - Eswab 11/22/16 16:00 Gram Stain - Final Arm - Tissue 11/22/16 16:00 Gram Stain - Final Arm - Tissue Laboratory Results 11/24/16 04:21 11/24/16 04:21 11/23/16 11/24/16 11/25/16 05:59 05:59 05:59 Intake Total 1600 1975 Output Total 250 1800 Balance 1350 175 - Physical Exam Constitutional: no apparent distress, appears nourished Eyes: PERRL Ears, Nose, Mouth, Throat: hearing normal Cardiovascular: regular rate and rhythym Respiratory: no respiratory distress Gastrointestinal: normoactive bowel sounds Skin: warm Musculoskeletal: no muscle tenderness Neurologic: AAOx3 Psychiatric: interacting appropriately ICD10 Worksheet Patient Problems: Problems Problem Status Diagnosed infected hardware right upper extremity Acute
[2016-11-24] MEDS: ASPIRIN EC 325 MG TAB PO SCH (08:48)
[2016-11-24] MEDS: OXYBUTYNIN CHLORIDE 5 MG TAB PO SCH (08:48)
[2016-11-24] MEDS: INSULIN REGULAR, HUMAN 100 UNIT/1 ML VIAL HIGH SC SCH ×2 (08:49→12:04)
[2016-11-24] MEDS ORDERED: DOXYCYCLINE HYCLATE 100 MG CAP/TAB PO SCH (09:00)
--- NOTE | 2016-11-24 11:15 | SOAPPROG ---
SOAP Progress Note Assessment/Plan: Assessment: Stable, S/P Removal IM nail from Rt humerus Plan:DC home F/U with Dr. Vizcaino in 10 days. 11/24/16 11:13 Subjective: I feel good Objective: Vital Signs Temp Pulse Resp BP Pulse Ox 36.7 C 53 L 16 133/85 H 96 11/24/16 07:17 11/24/16 07:17 11/24/16 07:17 11/24/16 07:17 11/24/16 07:17 Microbiology 11/22/16 16:00 Gram Stain - Final Arm - Tissue 11/22/16 16:00 Gram Stain - Final Arm - Tissue 11/22/16 16:00 Gram Stain - Final Arm - Eswab 11/22/16 16:00 Gram Stain - Final Arm - Eswab 11/22/16 16:00 Gram Stain - Final Arm - Tissue 11/22/16 16:00 Gram Stain - Final Arm - Tissue Laboratory Results 11/24/16 04:21 11/24/16 04:21 11/23/16 11/24/16 11/25/16 05:59 05:59 05:59 Intake Total 1600 1975 Output Total 250 1800 Balance 1350 175 CSMT OK, Dressing changed ICD10 Worksheet Patient Problems: Problems Problem Status Diagnosed infected hardware right upper extremity Acute
[2016-11-24 11:47] VITALS: BP 132/70; PULSE 58; TEMP 97.5
[2016-11-24] MEDS ORDERED: ENOXAPARIN 30 MG/0.3 ML SYR SC SCH (12:00)
== END 2016-11-24 14:29 | disposition home or self-care (01) | DRG 908 ==
LOC: F3N 11-22 12:15
PROVIDERS: ADMIT Orthopaedic Surgery; ATTEND Orthopaedic Surgery
PROC: 0RPJ04Z Removal of Internal Fixation Device from Right Shoulder Joint, Open Approach (ICD-10-PCS; principal; 2016-11-22 14:00)
DX: T85.79XA Infection and inflammatory reaction due to other internal prosthetic devices, implants and grafts, initial encounter (principal); M86.611 Other chronic osteomyelitis, right shoulder; E11.69 Type 2 diabetes mellitus with other specified complication; E78.5 Hyperlipidemia, unspecified; N18.3 Chronic kidney disease, stage 3 (moderate); E66.9 Obesity, unspecified; I12.9 Hypertensive chronic kidney disease with stage 1 through stage 4 chronic kidney disease, or unspecified chronic kidney disease; G62.9 Polyneuropathy, unspecified; E03.9 Hypothyroidism, unspecified; Z66 Do not resuscitate; Z96.611 Presence of right artificial shoulder joint; Z87.891 Personal history of nicotine dependence; Z88.0 Allergy status to penicillin; Z68.33 Body mass index [BMI] 33.0-33.9, adult; Z96.653 Presence of artificial knee joint, bilateral
CPT/HCPCS: 82947-QW; 97161-GP; 97165-GO; G8978-GP-CI; G8979-GP-CI; G8980-GP-CI; G8987-GO-CI; G8988-GO-CI; G8989-GO-CI; J0690; J1100; J1170; J1650; J1815; J2001; J2370; J2405; J2704; J3010; J3370

== ENCOUNTER → 2016-12-12 | Day surgery (SDC) | payer OTHER ==
--- NOTE | 2016-12-12 18:58 | IR ---
Imaging Guided Peripherally Inserted Central Catheter History: Osteomyelitis of right humerus. Technique: Following informed consent, the left arm was prepped and draped in sterile fashion. All el ements of maximal sterile barrier technique including cap, mask, sterile gown, sterile gloves, large sterile sheet, hand hygiene, and 2% chlorhexidine for cutaneous antisepsis, followed. Ultrasound larios sducer was placed in sterile sleeve and sterile coupling gel was used. Ultrasound evaluation of poten tial access sites was performed. After successfully identifying a patent vessel of adequate size, 1% Xylocaine was used for local anesthetic. Ultrasound guidance was used to puncture the cephalic vein with a 21-gauge needle. 0.018 measuring wire was passed centrally under fluoroscopic control. A skin ese with scalpel blade was followed by removing the access needle. A 4.5 Bengali peel-away sheath was followed by a 4 Bengali single-lumen central catheter, trimmed to 48 cm length. The tip of the cathet er was positioned centrally and the guidewire removed. AP fluoroscopic spot image was obtained in ins piration. The catheter irrigated easily. The hub of the catheter was secured to the skin using a Stat Lock adhesive device, and a sterile dressing was applied. Fluoroscopy time in minutes: 0.1. Estimated exposure in mGy: 2.8. Findings: The tip of the central catheter terminates at the junction of the superior vena cava and th e right atrium. Impression: 4 Bengali single-lumen central catheter peripherally inserted central catheter is ready to use. - - - - - - - - - - - - - - - - - - - - - - - - - - - - - - - - - - - - - - - - - (Cross-cutting measures: Current medications were listed in the medical record, including all known prescriptions, drug-fec-svcuqnz medications, herbal medications, and nutritional supplements. The pat ient does not smoke.)
== END | disposition home or self-care (01) ==
LOC: FIMAGING 12:06
PROVIDERS: ATTEND Radiology Diagnostic Radiology
PROC: 02HV33Z Insertion of Infusion Device into Superior Vena Cava, Percutaneous Approach (ICD-10-PCS; principal; 2016-12-12)
DX: T81.4XXA Infection following a procedure, initial encounter (principal); M86.121 Other acute osteomyelitis, right humerus
CPT/HCPCS: 36569; 77001; C1751